=== PATIENT | female | born 1935 | race African-American/Black ===

== ENCOUNTER → 2016-10-31 | Outpatient (CLI) | payer MEDICARE | LOC: RAD 13:02 | PROVIDERS: ATTEND Internal Medicine | DX: R06.02 Shortness of breath (principal) | CPT/HCPCS: 78582; A9540; A9567; Q9969 ==

== ENCOUNTER 2016-11-05 14:19 | Observation (INO) | payer MEDICARE ==
--- NOTE | 2016-11-05 15:19 | ER Document Report ---
ED Medical Screen (RME) - General Chief Complaint: General Weakness Stated Complaint: DIFFICULTY BREATHING Mode of Arrival: Ambulatory Information source: Patient Notes: 81-year-old female presents to ED c/o persistent sob over the last several weeks. Reports "tightness" to epigastric area but denies chest pain. States was seen by pcp last week and had VQ scan on 10/31/16 which was negative for PE. I have greeted and performed a rapid initial assessment of this patient. A comprehensive ED assessment and evaluation of the patient, analysis of test results and completion of the medical decision making process will be conducted by additional ED providers. TRAVEL OUTSIDE OF THE [place] IN LAST 30 DAYS: No - Related Data Allergies/Adverse Reactions: Iodinated Contrast Media - Oral and Allergy (Intermediate, Verified 11/05/16 15: 16) Hives Penicillins Allergy (Verified 11/05/16 15:16) Past Medical History - Social History Frequency of alcohol use: None Drug Abuse: None Renal/ Medical History: Denies: Hx Peritoneal Dialysis Physical Exam - Vital signs Vitals: Temp Pulse BP Pulse Ox 98.3 F 87 182/63 H 99 11/05/16 15:10 11/05/16 15:10 11/05/16 15:10 11/05/16 15:10 - General General appearance: Appears well, Alert In distress: None - Respiratory Respiratory status: No respiratory distress Course - Vital Signs Vital signs: Temp Pulse Resp BP Pulse Ox 98.3 F 87 182/63 H 99 11/05/16 15:10 11/05/16 15:10 11/05/16 15:10 11/05/16 15:10
[2016-11-05 16:03] LABS: ABSOLUTE BASOPHILS # (AUTO) 0.2 10^3/uL (0.0-0.2); ABSOLUTE EOSINOPHILS # (AUTO) 0.6 10^3/uL (0.0-0.6); ABSOLUTE LYMPHOCYTES (AUTO) 3.2 10^3/uL (0.5-4.7); ABSOLUTE MONOCYTES (AUTO) 0.5 10^3/uL (0.1-1.4); EOSINOPHILS % (AUTO) 7.3 % (0-6); HEMATOCRIT 39.2 % (36.0-47.0); HEMOGLOBIN 12.9 g/dL (12.0-15.5); HGB HCT DIFFERENCE -0.5; LYMPHOCYTES % (AUTO) 37.9 % (13-45); MEAN CORPUSCULAR HEMOGLOBIN 29.1 pg (27.0-33.4); MEAN CORPUSCULAR HGB CONC 32.8 g/dL (32.0-36.0); MEAN CORPUSCULAR VOLUME 89 fl (80-97); MONOCYTES % (AUTO) 5.9 % (3-13); RED BLOOD COUNT 4.42 10^6/uL (3.72-5.28); SEGMENTED NEUTROPHILS % (AUTO) 46.9 % (42-78); WHITE BLOOD COUNT 8.5 10^3/uL (4.0-10.5)
[2016-11-05 16:20] LABS: ALANINE AMINOTRANSFERASE 20 U/L (9-52); ALBUMIN 4.4 g/dL (3.5-5.0); ALKALINE PHOSPHATASE 117 U/L (38-126); ANION GAP 13 (5-19); ASPARTATE AMINO TRANSFERASE 14 U/L (14-36); BILIRUBIN,TOTAL 0.5 mg/dL (0.2-1.3); BLOOD UREA NITROGEN 14 mg/dL (7-20); CALCIUM 10.2 mg/dL (8.4-10.2); CARBON DIOXIDE 25 mmol/L (22-30); CHLORIDE 103 mmol/L (98-107); CREATINE KINASE 36 U/L (30-135); CREATININE RESULT 0.83 mg/dL (0.52-1.25); GLUCOSE 110 mg/dL (75-110); POTASSIUM 4.5 mmol/L (3.6-5.0); SODIUM 140.8 mmol/L (137-145); TOTAL PROTEIN 7.3 g/dL (6.3-8.2)
[2016-11-05 16:28] LABS: CREATINE KINASE MB 0.37 ng/mL (<4.55)
[2016-11-05 16:32] LABS: TROPONIN I 0.014 ng/mL
[2016-11-05 17:45] LABS: AMORPHOUS SEDIMENT,URINE TRACE /HPF; APPEARANCE,URINE SLIGHTLY-CLOUDY; BILIRUBIN,URINE NEGATIVE (NEGATIVE); CALCIUM OXALATE CRYSTALS,URINE TOO NUMEROUS TO CNT /HPF; GLUCOSE, URINE NEGATIVE (NEGATIVE); KETONES,URINE NEGATIVE (NEGATIVE); LEUKOCYTE ESTERASE,URINE NEGATIVE (NEGATIVE); NITRITE,URINE NEGATIVE (NEGATIVE); PROTEIN,URINE NEGATIVE (NEGATIVE); UROBILINOGEN,URINE NEGATIVE mg/dL (<2.0)
[2016-11-05] MEDS ORDERED: CLONIDINE HCL 0.2 MG TABLET PO ONE (18:58)
--- NOTE | 2016-11-05 19:01 | ER Document Report ---
ED Respiratory Problem - General Chief Complaint: General Weakness Stated Complaint: DIFFICULTY BREATHING Time seen by provider: 18:59 Mode of Arrival: Ambulatory Information source: Patient TRAVEL OUTSIDE OF THE [place] IN LAST 30 DAYS: No - HPI Patient complains to provider of: Cough, Short of breath Onset: Other - One year but worsening over the past 2 days Duration: Worse/persistent Quality of pain: No pain Severity: Mild Short of Breath: Mild Chest pain/discomfort: Tightness Cough: Nonproductive Similar symptoms previously: Yes Recently seen / treated by doctor: Yes Notes: Patient is an 81-year-old female presenting to the emergency room complaining of shortness of breath that's been going on for the past year with waxing and waning symptoms, worsening over the past 2-3 days, states she is started out with cold like symptoms and wheezing, now she has a bulging sensation in her chest that causes difficulty breathing and choking sensation, she reports a dry cough, it wakes her up at night, states she gets night sweats often, and some ankle swelling throughout the day, has had a decreased appetite, feels generalized weakness and lightheadedness, patient has been seen at urgent care approximately one week ago, and then followed up with her primary care provider on Sunday, had a lung scan were performed recently which shows no abnormalities , she denies any chest pain, no fevers, no history of smoking or secondhand smoke exposure - Related Data Allergies/Adverse Reactions: Iodinated Contrast Media - Oral and Allergy (Intermediate, Verified 11/05/16 15: 16) Hives Penicillins Allergy (Verified 11/05/16 15:16) Past Medical History - General Information source: Patient - Social History Smoking Status: Never Smoker Frequency of alcohol use: None Drug Abuse: None Family History: Reviewed & Not Pertinent Patient has suicidal ideation: No Patient has homicidal ideation: No Renal/ Medical History: Denies: Hx Peritoneal Dialysis Review of Systems - Review of Systems Constitutional: Diaphoresis, Weakness EENT: No symptoms reported Cardiovascular: No symptoms reported Respiratory: See HPI Gastrointestinal: No symptoms reported Genitourinary: No symptoms reported Female Genitourinary: No symptoms reported Musculoskeletal: No symptoms reported Skin: No symptoms reported Hematologic/Lymphatic: No symptoms reported Neurological/Psychological: No symptoms reported -: Yes All other systems reviewed and negative Physical Exam - Vital signs Vitals: Temp Pulse BP Pulse Ox 98.3 F 87 182/63 H 99 11/05/16 15:10 11/05/16 15:10 11/05/16 15:10 11/05/16 15:10 Interpretation: Hypertensive - General General appearance: Appears well, Alert - HEENT Head: Normocephalic, Atraumatic Eyes: Normal Pupils: PERRL - Respiratory Respiratory status: No respiratory distress Chest status: Nontender Breath sounds: Normal Chest palpation: Normal - Cardiovascular Rhythm: Regular Heart sounds: Normal auscultation Murmur: No - Abdominal Inspection: Normal Distension: No distension Bowel sounds: Normal Tenderness: Nontender Organomegaly: No organomegaly - Back Back: Normal, Nontender - Extremities General upper extremity: Normal inspection, Nontender, Normal color, Normal ROM , Normal temperature General lower extremity: Normal inspection, Nontender, Normal color, Normal ROM , Normal temperature, Normal weight bearing. No: Brady's sign - Neurological Neuro grossly intact: Yes Cognition: Normal Orientation: AAOx4 [place] Coma Scale Eye Opening: Spontaneous [place] Coma Scale Verbal: Oriented [place] Coma Scale Motor: Obeys Commands [place] Coma Scale Total: 15 Speech: Normal Motor strength normal: LUE, RUE, LLE, RLE Sensory: Normal - Psychological Associated symptoms: Normal affect, Normal mood - Skin Skin Temperature: Warm Skin Moisture: Dry Skin Color: Normal Course - Re-evaluation Re-evalutation: 11/05/16 21:18 Patient resting comfortably, workup so far has been unremarkable, patient was discussed with the primary care provider would like to place patient in the hospital on observation status for further workup and evaluation, this plan was discussed with patient and daughter at bedside who are in agreement - Vital Signs Vital signs: Temp Pulse Resp BP Pulse Ox 98.3 F 87 12 183/72 H 100 11/05/16 15:10 11/05/16 15:10 11/05/16 19:03 11/05/16 19:03 11/05/16 19:03 - Laboratory Result Diagrams: 11/05/16 15:50 11/05/16 15:50 Laboratory results interpreted by me: 11/05/16 11/05/16 15:50 16:00 Eosinophils % 7.3 H Urine Ascorbic Acid 40 H - Diagnostic Test Radiology reviewed: Image reviewed, Reports reviewed - EKG Interpretation by Me EKG shows normal: Sinus rhythm Rate: Normal Rhythm: NSR - Transfer of Care Care transferred to following provider: Dr Luciano Discharge - Discharge Clinical Impression: Dyspnea on exertion Chest pain Qualifiers: Chest pain type: unspecified Qualified Code(s): R07.9 - Chest pain, unspecified Condition: Stable Disposition: ADMITTED OBSERVATION Admitting Provider: Vinod Unit Admitted: Telemetry Referrals: SAADIA LUCIANO MD [Primary Care Provider] - Follow up as needed
[2016-11-05 20:04] LABS: VENOUS BLOOD BASE EXCESS -0.8 mmol/L; VENOUS BLOOD HCO3 25.6 mmol/L (20-32); VENOUS BLOOD PCO2 48.9 mmHg (35-63); VENOUS BLOOD PH 7.34 (7.30-7.42)
--- NOTE | 2016-11-05 20:30 | EKG REPORT ---
SEVERITY:- ABNORMAL ECG - SINUS RHYTHM PROBABLE LVH WITH SECONDARY REPOL ABNRM : Confirmed by: Easton Schulz MD 05-Nov-2016 20:29:57
[2016-11-05 20:39] LABS: FREE T3 2.79 pg/mL (2.77-5.27)
[2016-11-05 20:52] LABS: THYROID STIMULATING HORMONE 2.49 uIU/mL (0.47-4.68)
[2016-11-06 04:57] LABS: ABSOLUTE EOSINOPHILS # (AUTO) 0.6 10^3/uL (0.0-0.6); ABSOLUTE LYMPHOCYTES (AUTO) 3.9 10^3/uL (0.5-4.7); ABSOLUTE MONOCYTES (AUTO) 0.5 10^3/uL (0.1-1.4); ABSOLUTE NEUT (AUTO) 2.9 10^3/uL (1.7-8.2); BASOPHILS % (AUTO) 0.5 % (0-2); EOSINOPHILS % (AUTO) 7.1 % (0-6); HEMATOCRIT 34.9 % (36.0-47.0); HEMOGLOBIN 11.1 g/dL (12.0-15.5); HGB HCT DIFFERENCE -1.6; LYMPHOCYTES % (AUTO) 48.9 % (13-45); MEAN CORPUSCULAR HEMOGLOBIN 28.5 pg (27.0-33.4); MEAN CORPUSCULAR HGB CONC 31.9 g/dL (32.0-36.0); MEAN CORPUSCULAR VOLUME 90 fl (80-97); MONOCYTES % (AUTO) 6.7 % (3-13); RED CELL DISTRIBUTION WIDTH 14.1 % (11.5-14.0); SEGMENTED NEUTROPHILS % (AUTO) 36.8 % (42-78)
[2016-11-06] MEDS: ENALAPRILAT DIHYDRATE INJ/PF 2.5 MG/2 ML SDV IV SCH ×4 (05:42→22:50)
[2016-11-06] MEDS: ENOXAPARIN SODIUM INJ 40 MG/0.4 ML DISP.SYRIN SUBCUT SCH (08:57)
[2016-11-06] MEDS ORDERED: ASPIRIN 81 MG TABLET, ENT COATED PO SCH (14:00)
[2016-11-06] MEDS ORDERED: (PENDING PHARMACY ID) (Cholecalciferol (Vitamin D3) [Vitamin D3] 1,000 UNIT) PO SCH (14:00)
[2016-11-06] MEDS ORDERED: VITAMIN E 100 UNIT PO SCH (14:00)
[2016-11-06 15:20] LABS: CREATINE KINASE MB 0.23 ng/mL (<4.55); TROPONIN I 0.013 ng/mL
[2016-11-06] MEDS ORDERED: CHOLECALCIFEROL (D3) 1,000 UNIT TABLET PO ONE (15:30)
[2016-11-06] MEDS ORDERED: LEVOTHYROXINE SODIUM 0.088 MG TABLET PO ONE (16:00)
[2016-11-06] MEDS ORDERED: ASPIRIN 81 MG TABLET, ENT COATED PO ONE (16:00)
[2016-11-06] MEDS ORDERED: AMLODIPINE BESYLATE 5 MG TABLET PO ONE (16:00)
[2016-11-06] MEDS ORDERED: LANSOPRAZOLE 30 MG TAB.RAP.DR PO ONE (16:00)
[2016-11-06] MEDS ORDERED: (PENDING PHARMACY ID) (Metformin Hcl [Metformin Hcl Er] 500 MG) PO SCH (16:00)
[2016-11-06] MEDS: LANSOPRAZOLE 30 MG TAB.RAP.DR PO SCH (16:40)
[2016-11-06] MEDS: METFORMIN HCL 500 MG TABLET PO SCH (16:40)
[2016-11-06] MEDS: LEVOTHYROXINE SODIUM 0.088 MG TABLET PO SCH (16:40)
[2016-11-06] MEDS: METOPROLOL TARTRATE 50 MG TABLET PO SCH (18:21)
[2016-11-06] MEDS: HUM INSULIN NPH/REG INSULIN HM 100 UNIT/1 ML 3 ML SUBCUT SCH (18:21)
--- NOTE | 2016-11-06 18:30 | PDOC H&P ---
History of Present Illness Admission Date/PCP: 11/05/16 23:00 SAADIA LUCIANO, History of Present Illness: ADDISON DICKEY is a 81 year old female, she came to the emergency room because of progressive shortness of breath. She recently came to establish with our practice as a new patient last week and at the time she was on antibiotic that was prescribed for her when she presented to the emergency room with respiratory symptoms. She was at the time diagnosed with pneumonia, when I saw her in the office, she has shortness of breath. I requested for a stat VQ scan because she could not get a CTA because of the allergy to dye, the VQ scan was negative for pulmonary embolus. She came to emergency room again with complained of shortness of breath. The shortness of breath is chronic in the last year, but she said it has been worse in the last 2 days. In the emergency room she was evaluated. Chest x-ray was done that showed peribronchial coughing and interstitial changes, she does not smoke cigarettes or no history of secondhand smoke. She has risk factors for coronary artery disease including type II diabetes mellitus, hypertension, it is probably reasonable to admit her for observation and eliminates or confirm ischemic heart disease Past Medical History Cardiac Medical History: Reports: Hypertension Endocrine Medical History: Reports: Diabetes Mellitus Type 2, Hypothyroidism Past Surgical History Past Surgical History: Reports: Cholecystectomy, Hysterectomy Social History Smoking Status: Never Smoker - Advance Directive Resuscitation Status: Full Code Family History Family History: Reviewed & Not Pertinent Parental Family History Reviewed: Yes Children Family History Reviewed: Yes Sibling(s) Family History Reviewed.: Yes Medication/Allergy Home Medications: Amlodipine Besylate [Norvasc 5 mg Tablet] 5 mg PO DAILY 11/06/16 Aspirin [Aspirin EC] 81 mg PO DAILY 11/06/16 Cholecalciferol (Vitamin D3) [Vitamin D3] 1,000 unit PO DAILY 11/06/16 Insulin NPH Hum/Reg Insulin Hm [Novolin 70-30 100 Unit/ml Vial] 12 unit SQ QPM 11/06/16 Insulin NPH Hum/Reg Insulin Hm [Novolin 70-30 100 Unit/ml Vial] 15 unit SQ QAM 11/06/16 Levothyroxine Sodium [Synthroid 0.088 mg Tablet] 88 mcg PO DAILY 11/06/16 Metformin HCl [Metformin HCl ER] 500 mg PO BIDACBS 11/06/16 Metoprolol Tartrate [Lopressor 50 mg Tablet] 50 mg PO Q12 11/06/16 Omeprazole 40 mg PO DAILY 11/06/16 Vitamin E 100 unit PO DAILY 11/06/16 Albuterol Sulfate [Proair HFA] 1 - 2 puff IH Q4 PRN #1 inhaler 11/07/16 Allergies/Adverse Reactions: Iodinated Contrast Media - Oral and Allergy (Intermediate, Verified 11/05/16 15: 16) Hives Penicillins Allergy (Verified 11/05/16 15:16) Review of Systems Constitutional: ABSENT: chills, fever(s), headache(s), weight gain, weight loss Eyes: ABSENT: visual disturbances Ears: ABSENT: hearing changes Cardiovascular: PRESENT: dyspnea on exertion Respiratory: ABSENT: cough, hemoptysis Gastrointestinal: ABSENT: abdominal pain, constipation, diarrhea, hematemesis, hematochezia, nausea, vomiting Genitourinary: ABSENT: dysuria, hematuria Musculoskeletal: ABSENT: joint swelling Integumentary: ABSENT: rash, wounds Neurological: ABSENT: abnormal gait, abnormal speech, confusion, dizziness, focal weakness, syncope Psychiatric: ABSENT: anxiety, depression, homidical ideation, suicidal ideation Endocrine: ABSENT: cold intolerance, heat intolerance, menstrual abnormalities, polydipsia, polyuria Hematologic/Lymphatic: ABSENT: easy bleeding, easy bruising, lymphadenopathy Physical Exam Vital Signs: Temp Pulse Resp BP Pulse Ox 98.3 F 87 20 141/60 H 100 11/05/16 15:10 11/05/16 15:10 11/06/16 18:03 11/06/16 17:31 11/06/16 18:03 Intake & Output 11/05/16 11/06/16 11/07/16 06:59 06:59 06:59 Intake Total 240 Balance 240 General appearance: PRESENT: no acute distress, well-developed, well-nourished Head exam: PRESENT: atraumatic, normocephalic Eye exam: PRESENT: conjunctiva pink, EOMI, PERRLA Ear exam: PRESENT: normal external ear exam Mouth exam: PRESENT: moist, tongue midline Neck exam: PRESENT: full ROM Respiratory exam: PRESENT: clear to auscultation kyle Cardiovascular exam: PRESENT: RRR, +S1, +S2 Pulses: PRESENT: normal dorsalis pedis pul, +2 pedal pulses bilateral Vascular exam: PRESENT: normal capillary refill GI/Abdominal exam: PRESENT: normal bowel sounds, soft Rectal exam: PRESENT: deferred Neurological exam: PRESENT: alert, awake, oriented to person, oriented to place , oriented to time, oriented to situation, CN II-XII grossly intact Psychiatric exam: PRESENT: appropriate affect, normal mood Skin exam: PRESENT: dry, intact, warm Results Laboratory Results: 11/06/16 04:31 11/06/16 04:31 WBC 8.0 RBC 3.90 Hgb 11.1 L Hct 34.9 L MCV 90 MCH 28.5 MCHC 31.9 L RDW 14.1 H Plt Count 289 Seg Neutrophils % 36.8 L Lymphocytes % 48.9 H Monocytes % 6.7 Eosinophils % 7.1 H Basophils % 0.5 Absolute Neutrophils 2.9 Absolute Lymphocytes 3.9 Absolute Monocytes 0.5 Absolute Eosinophils 0.6 Absolute Basophils 0.0 11/06/16 11/06/16 14:37 14:37 Creatine Kinase 29 L CK-MB (CK-2) 0.23 Troponin I 0.013 Impressions: Chest X-Ray 11/05/16 15:16 IMPRESSION: REACTIVE AIRWAY DISEASE VERSUS VIRAL SYNDROME. NO CONSOLIDATION. Assessment & Plan - Diagnosis (1) Bronchospastic airway disease Is this a current diagnosis for this admission?: Yes (2) Acute bronchitis with bronchospasm Is this a current diagnosis for this admission?: Yes (3) Type 2 diabetes mellitus Qualifiers: Diabetes mellitus complication status: without complication Diabetes mellitus shelter insulin use: without shelter use Qualified Code(s): E11.9 - Type 2 diabetes mellitus without complications Is this a current diagnosis for this admission?: Yes
--- NOTE | 2016-11-06 19:15 | XCELERA REPORT ---
[address] [address] Transthoracic Echocardiogram Report Name: ADDISON DICKEY Age: 81 yrs Gender: Female : 1935 Patient Status: Inpatient Patient Location: \S\[facility]\S\A Study Date: 11/06/2016 02:53 PM Height: 66 in Weight: 160 lb BSA: 1.8 m2 Procedure: A complete two-dimensional transthoracic echocardiogram was performed (2D, M-mode, spectral and color flow Doppler). The study was technically difficult with many images being suboptimal in quality. Reason For Study: shortness of breath Ordering Physician: SAADIA LUCIANO Performed By: Sydni Ramon Interpretation Summary The left ventricular ejection fraction is within normal limits. There is borderline concentric left ventricular hypertrophy. The left ventricle is grossly normal size. Doppler measurements suggest impaired left ventricular relaxation, which is associated with grade I/IV or mild diastolic dysfunction The right ventricular systolic function is normal. The left atrial size is normal. The right atrium is normal in size There is a mild amount of mitral regurgitation There is no mitral valve stenosis. There is no aortic valve stenosis There is a trace amount of aortic regurgitation There is no tricuspid stenosis. Tricuspid regurgitation jet envelope not well defined to measure RV systolic pressure accurately. The aortic root is not well visualized but is probably normal size. The inferior vena cava appeared normal and decreased > 50% with respiration (RAP 5-10 mmHg) Minimal pericardial effusion. MMode/2D Measurements \T\ Calculations RVDd: 2.8 cm LVIDd: 4.3 cm FS: 37.0 % Ao root diam: 3.2 cm IVSd: 0.98 cm LVIDs: 2.7 cm EDV(Teich): 82.6 ml LVPWd: 1.1 cm ESV(Teich): 27.1 ml Ao root area: 7.9 cm2 EF(Teich): 67.2 % LA dimension: 3.5 cm LVOT diam: 2.2 cm LVOT area: 3.8 cm2 Doppler Measurements \T\ Calculations MV E max riley: MV P1/2t max riley: Ao V2 max: LV V1 max P.8 cm/sec 53.8 cm/sec 108.0 cm/sec 3.7 mmHg MV A max riley: MV P1/2t: 54.0 msec Ao max PG: LV V1 max: 68.2 cm/sec MVA(P1/2t): 4.1 cm2 4.7 mmHg 95.9 cm/sec MV E/A: 0.77 MV dec slope: SISI(V,D): 3.4 cm2 292.1 cm/sec2 MV dec time: 0.19 sec PA V2 max: TR max riley: 81.9 cm/sec 208.5 cm/sec PA max PG: TR max P.4 mmHg 2.7 mmHg Left Ventricle The left ventricle is grossly normal size. There is borderline concentric left ventricular hypertrophy. The left ventricular ejection fraction is within normal limits. Doppler measurements suggest impaired left ventricular relaxation, which is associated with grade I/IV or mild diastolic dysfunction. Wall motion cannot be accurately commented on, but no definite regional wall motion abnormalities noted. Right Ventricle The right ventricle is normal size. There is normal right ventricular wall thickness. The right ventricular systolic function is normal. Atria The right atrium is normal in size. The left atrial size is normal. Interarterial septum not well visualized and not well dopplered. Cannot comment on ASD/PFO presence. Mitral Valve The mitral valve is grossly normal. There is no mitral valve stenosis. There is a mild amount of mitral regurgitation. Aortic Valve The aortic valve is grossly normal. There is no aortic valve stenosis. There is a trace amount of aortic regurgitation. Tricuspid Valve The tricuspid valve is not well visualized, but is grossly normal. There is no tricuspid stenosis. There is a trace or physiologic amount of tricuspid regurgitation. Tricuspid regurgitation jet envelope not well defined to measure RV systolic pressure accurately. Pulmonic Valve The pulmonic valve is not well visualized. Great Vessels The aortic root is not well visualized but is probably normal size. The inferior vena cava appeared normal and decreased > 50% with respiration (RAP 5-10 mmHg). Effusions Minimal pericardial effusion. : SAADIA LUCIANO > Kenny Ellis
[2016-11-06 22:46] LABS: CREATINE KINASE MB 0.46 ng/mL (<4.55); TROPONIN I 0.012 ng/mL
[2016-11-07] MEDS: ENALAPRILAT DIHYDRATE INJ/PF 2.5 MG/2 ML SDV IV SCH ×4 (00:38→17:30)
[2016-11-07 04:44] LABS: ABSOLUTE BASOPHILS # (AUTO) 0.1 10^3/uL (0.0-0.2); ABSOLUTE EOSINOPHILS # (AUTO) 0.7 10^3/uL (0.0-0.6); ABSOLUTE LYMPHOCYTES (AUTO) 3.9 10^3/uL (0.5-4.7); ABSOLUTE MONOCYTES (AUTO) 0.5 10^3/uL (0.1-1.4); ABSOLUTE NEUT (AUTO) 2.9 10^3/uL (1.7-8.2); BASOPHILS % (AUTO) 1.1 % (0-2); EOSINOPHILS % (AUTO) 8.7 % (0-6); HEMATOCRIT 36.7 % (36.0-47.0); HEMOGLOBIN 11.9 g/dL (12.0-15.5); LYMPHOCYTES % (AUTO) 47.8 % (13-45); MEAN CORPUSCULAR HEMOGLOBIN 28.7 pg (27.0-33.4); MEAN CORPUSCULAR HGB CONC 32.3 g/dL (32.0-36.0); MEAN CORPUSCULAR VOLUME 89 fl (80-97); MONOCYTES % (AUTO) 6.6 % (3-13); RED BLOOD COUNT 4.14 10^6/uL (3.72-5.28); RED CELL DISTRIBUTION WIDTH 14.1 % (11.5-14.0); SEGMENTED NEUTROPHILS % (AUTO) 35.8 % (42-78); WHITE BLOOD COUNT 8.1 10^3/uL (4.0-10.5)
[2016-11-07 05:10] LABS: CREATINE KINASE MB 0.45 ng/mL (<4.55)
[2016-11-07 05:13] LABS: TROPONIN I 0.012 ng/mL
[2016-11-07] MEDS: METOPROLOL TARTRATE 50 MG TABLET PO SCH ×2 (07:37→17:30)
[2016-11-07] MEDS ORDERED: HUM INSULIN NPH/REG INSULIN HM 100 UNIT/1 ML 3 ML SUBCUT SCH (08:00)
[2016-11-07] MEDS: METFORMIN HCL 500 MG TABLET PO SCH ×2 (08:11→16:19)
[2016-11-07] MEDS: ENOXAPARIN SODIUM INJ 40 MG/0.4 ML DISP.SYRIN SUBCUT SCH (08:11)
[2016-11-07] MEDS ORDERED: ASPIRIN 81 MG TABLET, ENT COATED PO SCH (10:00)
[2016-11-07] MEDS ORDERED: AMLODIPINE BESYLATE 5 MG TABLET PO SCH (10:00)
[2016-11-07] MEDS ORDERED: CHOLECALCIFEROL (D3) 1,000 UNIT TABLET PO SCH (10:00)
[2016-11-07] MEDS: LANSOPRAZOLE 30 MG TAB.RAP.DR PO SCH (10:26)
[2016-11-07] MEDS: LEVOTHYROXINE SODIUM 0.088 MG TABLET PO SCH (10:26)
[2016-11-07] MEDS ORDERED: REGADENOSON INJ 0.4 MG/5 ML DISP.SYRIN IV ONE (10:53)
--- NOTE | 2016-11-07 12:37 | DRAGON STRESS TEST REPORT ---
INTRAVENOUS LEXISCAN CARDIOLITE STRESS TEST USING SINGLE PHOTON EMMISION COMPUTERIZED TOMOGRAPHIC. DATE OF PROCEDURE: 11/07/2016 INDICATION : Chest pain, shortness of breath RESTING EKG: Sinus rhythm, LVH with secondary ST-T wave changes STRESS EKG: No significant changes noted with LexiScan bolus REASON FOR TERMINATION: Protocol. PROCEDURE REPORT: Baseline heart rate 78 beats per minute with blood pressure of 154/69. Patient had no significant complaints. Heart rate at 2 minutes post bolus 78 with a blood pressure of on 187/74. 3 minutes post bolus heart rate 79 with blood pressure of 185/73. No significant EKG changes were noted. Patient had no significant complaints during the procedure or postprocedure. CONCLUSIONS: Normal EKG and hemodynamic response to IV LexiScan. NUCLEAR DATA: At rest the patient was given 11.4 millicuries of technetium 99 sestamibi injected intravenously. As per protocol rest gated SPECT images were obtained. Subsequently the patient was given intravenous LexiScan at a dose of 0.4 mg in 5 mL intravenously, followed by flush with normal saline. Subsequently the stress dose of 35.2 millicuries of technetium 99 sestamibi was injected intravenously. As per protocol stress gated images were obtained. NUCLEAR INTERPRETATION: Both raw and processed data were used for interpretation. Visual, qualitative, computer-generated quantitative data was used. There was good myocardial uptake of technetium compound. Motion artifact and soft tissue attenuations were noted. Increased visceral uptake was noted. No definitive areas of transient perfusion defect noted. No definitive areas of fixed perfusion defect or scars noted. EKG gated imaging showed LV EF at 63 %, rest and stress gated EF similar visually. T. I D. ratio was 1.03. Lung heart ratio noted to be within normal limits 0.32. No significant extracardiac and abnormal radiotracer activities were noted. RV free wall uptake was noted to be normal. IMPRESSION: Also refer to comments under nuclear interpretation. Also test results needs to be interpreted in the context of pretest probability. 1. There is no definitive scintigraphic evidence of LexiScan induced myocardial ischemia. 2. There is no definitive scintigraphic evidence of myocardial infarction/scar. 3. EKG gated imaging shows left ejection fraction of approximately 63 %. 4. Clinical correlation requested as occasionally single vessel disease or balanced ischemia could be missed. In approximately 10% of the cases Lexiscan may not cause adequate vasodilatory stress. RECOMMENDATIONS: Aggressive risk factor modification, medical therapy. Clinical correlation with echocardiogram derived ejection fraction. Inability to exercise by itself can lead to increased cardiovascular event risks. Consider cardiology consultation if clinically indicated. I AM AVAILABLE FOR CARDIOLOGY CONSULTATION AND FOLLOWUP IF REQUESTED BY PMD Kenny Ellis M.D., MRCP Surveillance Dual Rate Officer mine geologist, Board certified in cardiovascular diseases, Nuclear cardiology, Echocardiography Cardiac CT and cardiac MRI Ph. [phone] [facility]
[2016-11-07 16:13] VITALS: BP 147/58
[2016-11-07] MEDS: HUM INSULIN NPH/REG INSULIN HM 100 UNIT/1 ML 3 ML SUBCUT SCH (17:29)
--- NOTE | 2016-11-07 18:28 | PDOC DISCHARGE SUMMARY ---
General - Admit/Disc Date/PCP Admission Date/Primary Care Provider: 11/05/16 23:00 SAADIA LUCIANO, Discharge Date: 11/07/16 - Discharge Diagnosis (1) Bronchospastic airway disease Is this a current diagnosis for this admission?: Yes (2) Acute bronchitis with bronchospasm Is this a current diagnosis for this admission?: Yes (3) Type 2 diabetes mellitus Is this a current diagnosis for this admission?: Yes - Additional Information Resuscitation Status: Full Code Home Medications: RX: Amlodipine Besylate [Norvasc 5 mg Tablet] 5 mg PO DAILY 11/06/16 RX: Aspirin [Aspirin EC] 81 mg PO DAILY 11/06/16 RX: Cholecalciferol (Vitamin D3) [Vitamin D3] 1,000 unit PO DAILY 11/06/16 RX: Insulin NPH Hum/Reg Insulin Hm [Novolin 70-30 100 Unit/ml Vial] 12 unit SQ QPM 11/06/16 RX: Insulin NPH Hum/Reg Insulin Hm [Novolin 70-30 100 Unit/ml Vial] 15 unit SQ QAM 11/06/16 RX: Levothyroxine Sodium [Synthroid 0.088 mg Tablet] 88 mcg PO DAILY 11/06/16 RX: Metformin HCl [Metformin HCl ER] 500 mg PO BIDACBS 11/06/16 RX: Metoprolol Tartrate [Lopressor 50 mg Tablet] 50 mg PO Q12 11/06/16 RX: Omeprazole 40 mg PO DAILY 11/06/16 RX: Vitamin E 100 unit PO DAILY 11/06/16 Albuterol Sulfate [Proair HFA] 1 - 2 puff IH Q4 PRN #1 inhaler 11/07/16 History of Present Illness History of Present Illness: ADDISON DICKEY is a 81 year old female, she came to the emergency room because of progressive shortness of breath. She recently came to establish with our practice as a new patient last week and at the time she was on antibiotic that was prescribed for her when she presented to the emergency room with respiratory symptoms. She was at the time diagnosed with pneumonia, when I saw her in the office, she has shortness of breath. I requested for a stat VQ scan because she could not get a CTA because of the allergy to dye, the VQ scan was negative for pulmonary embolus. She came to emergency room again with complained of shortness of breath. The shortness of breath is chronic in the last year, but she said it has been worse in the last 2 days. In the emergency room she was evaluated. Chest x-ray was done that showed peribronchial coughing and interstitial changes, she does not smoke cigarettes or no history of secondhand smoke. She has risk factors for coronary artery disease including type II diabetes mellitus, hypertension, it is probably reasonable to admit her for observation and eliminates or confirm ischemic heart disease Hospital Course Hospital Course: Patient was admitted because of shortness of breath, because she has risk factors for ischemic heart disease. She was admitted for evaluation and observation, she underwent lexiscan Cardiolite stress test and it showed no scintigraphic evidence of lexiscan induced myocardial ischemia, there is no scintigraphic evidence of myocardial infarction/scar the ejection fraction of the left ventricle was 635. She also had a 2-D echo done it was essentially normal echo. CT chest without contrast was done and it was negative, she had a VQ scan done last week that was negative for pulmonary embolus. She probably have bronchospastic disease because she had episode of wheezing with shortness of breath Physical Exam Vital Signs: Temp Pulse Resp BP Pulse Ox 97.7 F 75 18 147/58 H 100 11/07/16 15:42 11/07/16 15:42 11/07/16 15:42 11/07/16 15:42 11/07/16 15:42 Intake & Output 11/06/16 11/07/16 11/08/16 06:59 06:59 06:59 Intake Total 460 1761 Balance 460 1761 Weight 73.3 kg General appearance: PRESENT: no acute distress, well-developed, well-nourished Head exam: PRESENT: atraumatic, normocephalic Eye exam: PRESENT: conjunctiva pink, EOMI, PERRLA Ear exam: PRESENT: normal external ear exam Mouth exam: PRESENT: moist, tongue midline Neck exam: PRESENT: full ROM Respiratory exam: PRESENT: clear to auscultation kyle Cardiovascular exam: PRESENT: RRR, +S1, +S2 Vascular exam: PRESENT: normal capillary refill GI/Abdominal exam: PRESENT: normal bowel sounds, soft Rectal exam: PRESENT: deferred Neurological exam: PRESENT: alert, awake, oriented to person, oriented to place , oriented to time, oriented to situation, CN II-XII grossly intact Psychiatric exam: PRESENT: appropriate affect, normal mood Skin exam: PRESENT: dry, intact, warm Results Laboratory Results: 11/07/16 04:03 11/07/16 04:03 WBC 8.1 RBC 4.14 Hgb 11.9 L Hct 36.7 MCV 89 MCH 28.7 MCHC 32.3 RDW 14.1 H Plt Count 259 Seg Neutrophils % 35.8 L Lymphocytes % 47.8 H Monocytes % 6.6 Eosinophils % 8.7 H Basophils % 1.1 Absolute Neutrophils 2.9 Absolute Lymphocytes 3.9 Absolute Monocytes 0.5 Absolute Eosinophils 0.7 H Absolute Basophils 0.1 11/06/16 11/06/16 11/06/16 14:37 14:37 22:08 Creatine Kinase 29 L 45 CK-MB (CK-2) 0.23 Troponin I 0.013 11/06/16 11/07/16 11/07/16 22:08 04:03 04:03 Creatine Kinase 38 CK-MB (CK-2) 0.46 0.45 Troponin I 0.012 0.012 Impressions: Chest X-Ray 11/05/16 15:16 IMPRESSION: REACTIVE AIRWAY DISEASE VERSUS VIRAL SYNDROME. NO CONSOLIDATION. Chest CT 11/06/16 00:00 IMPRESSION: NO SIGNIFICANT FINDING ON NON-CONTRASTED CHEST CT.
== END 2016-11-07 18:39 | disposition home or self-care (01) ==
LOC: ER 14:19 → UNDOADMOB 21:33 → EH 21:33 → 3N 11-06 20:00
PROVIDERS: ADMIT Internal Medicine; ATTEND Internal Medicine
DX: J20.9 Acute bronchitis, unspecified (principal); E11.9 Type 2 diabetes mellitus without complications; I10 Essential (primary) hypertension; E03.9 Hypothyroidism, unspecified; Z79.4 Long term (current) use of insulin; Z79.84 Long term (current) use of oral hypoglycemic drugs
CPT/HCPCS: 93005; 99285; 36415 ×3; 84439; 82553 ×3; 82962 ×3; 82550 ×3; 84443; 85025 ×3; 80053; 81001; 84484 ×3; 84481; 82803; 83880; 93306; 93017; 71020; 78452; 71250; 93010; G0378 ×3; A9500; J2785; J3490; A9270 ×17; J1650 ×2; Q9969; J1815

== ENCOUNTER 2017-03-13 14:50 | Day surgery (SDC) | payer MEDICARE ==
[2017-03-13] MEDS ORDERED: NALOXONE HCL INJ/PF 0.4 MG/1 ML SDV ONE (16:15)
[2017-03-13] MEDS ORDERED: FENTANYL CITRATE INJ/PF 100 MCG/2 ML AMPUL ONE (16:16)
[2017-03-13] MEDS ORDERED: FLUMAZENIL INJ 0.5 MG/5 ML VIAL IV ONE (16:16)
[2017-03-13] MEDS ORDERED: EPINEPHRINE INJ 1 MG/10 ML DISP.SYRIN ONE (16:16)
[2017-03-13] MEDS ORDERED: MIDAZOLAM 2 MG/2 ML INJ ONE (16:16)
[2017-03-13] MEDS ORDERED: GLUCAGON,HUMAN RECOMB 1 MG INJ ONE (16:17)
[2017-03-13] MEDS ORDERED: ONABOTULINUMTOXINA INJ/PF 100 UNIT SDV IM PRN (16:57)
--- NOTE | 2017-03-13 17:28 | Operative Report ---
Operative Report DATE OF SURGERY: 03/13/17 Operative Report: Pre-op diagnosis: History of symptomatic pyloric stenosis Post-op diagnosis: Pyloric stenosis Surgery: Esophagogastroduodenoscopy with Botox injection Medications: Versed 1mg Fentanyl 50mcg IV push Tissue removed: None Procedure: After informed consent obtained from patient, the throat was sprayed with Hurricane and conscious sedation was achieved. The upper endoscope was inserted into the esophagus under direct vision and advanced into the stomach. The duodenum was entered and examined to the second part. Endoscope was then slowly pulled out of the patient as the mucosa was examined into details. Patient tolerated procedure well. Findings Esophagus: Normal Z-line at: 40 cm Antrum: The pyloric channel was muscular and did not take. I was able to get the 8.8 mm endoscope through without any difficulty. Four-quadrant immediately around the pyloric channel was then injected with Botox Body: Normal Fundus: Normal Duodenum first part: Normal Duodenum second part: Normal Plan: Continue omeprazole OPERATION: .
--- NOTE | 2017-03-13 17:29 | PDOC DISCHARGE SUMMARY ---
Discharge Summary (SDC) - Discharge Final Diagnosis: Pyloric stenosis Date of Surgery: 03/13/17 Discharge Date: 03/13/17 Condition: Stable Treatment or Instructions: None Discharge Diet: As Tolerated Discharge Activity: Activity As Tolerated Home Care Assistance: None Needed Report the Following to Your Physician Immediately: Swelling, Warmth, Increased Soreness
[2017-03-13 18:08] VITALS: BP 158/64
== END 2017-03-13 18:10 | disposition home or self-care (01) ==
LOC: END 14:50
PROVIDERS: ATTEND Internal Medicine Gastroenterology
PROC: 3E0G8GC Introduction of Other Therapeutic Substance into Upper GI, Via Natural or Artificial Opening Endoscopic (ICD-10-PCS; principal; 2017-03-13 15:30)
DX: K31.1 Adult hypertrophic pyloric stenosis (principal); K21.9 Gastro-esophageal reflux disease without esophagitis; K44.9 Diaphragmatic hernia without obstruction or gangrene; E11.9 Type 2 diabetes mellitus without complications; E03.9 Hypothyroidism, unspecified; I10 Essential (primary) hypertension; E66.3 Overweight; R06.02 Shortness of breath; Z79.899 Other long term (current) drug therapy; Z79.4 Long term (current) use of insulin; Z79.84 Long term (current) use of oral hypoglycemic drugs; Z88.0 Allergy status to penicillin; Z68.26 Body mass index [BMI] 26.0-26.9, adult
CPT/HCPCS: 43236; 82962; J2250; J3010; J0585; J0171; J1610; J2310; J3490

== ENCOUNTER → 2017-06-29 | Outpatient (CLI) | payer MEDICARE ==
--- NOTE | 2017-06-29 17:52 | RADIOLOGY REPORT (SQ) ---
EXAM DESCRIPTION: MRI HEAD WITHOUT COMPLETED DATE/TIME: 06/29/2017 5:12 pm REASON FOR STUDY: AMNESIA R41.1 ANTEROGRADE AMNESIA COMPARISON: None. TECHNIQUE: Multiplanar imaging includes non-contrasted T1, T2, FLAIR, and diffusion with ADC map seq uences. Images stored on PACS. LIMITATIONS: None. FINDINGS: ANATOMY: No anomalies. Normal vascular flow voids. Pituitary fossa normal. CSF SPACES: Normal in size and contour. No hemorrhage. CEREBRUM: Sulci and gyri normal in size and contour. Normal white matter signal on FLAIR imaging. No evidence of hemorrhage, mass, or extraaxial fluid collection. POSTERIOR FOSSA: No signal alteration. No hemorrhage. No edema, masses or mass effect. Internal lin tory canals, cerebello-pontine angles, mastoids normal. DIFFUSION IMAGING: Negative for acute or sub-acute infarction. ORBITS: No masses. Globes normal. PARANASAL SINUSES: No fluid levels. Mucosa normal. OTHER: No other significant finding. IMPRESSION: NORMAL MRI OF THE BRAIN WITHOUT INTRAVENOUS GADOLINIUM CONTRAST. EVIDENCE OF ACUTE STROKE: NO. TECHNICAL DOCUMENTATION: JOB ID: [id number] [employer]- All Rights Reserved
== END ==
LOC: RAD 16:03
PROVIDERS: ATTEND Internal Medicine
DX: R41.1 Anterograde amnesia (principal)
CPT/HCPCS: 70551

== ENCOUNTER → 2018-07-08 | Outpatient (CLI) | payer MEDICARE ==
--- NOTE | 2018-07-08 09:49 | RADIOLOGY REPORT (SQ) ---
EXAM DESCRIPTION: CT CHEST WITHOUT COMPLETED DATE/TIME: 07/08/2018 9:35 am REASON FOR STUDY: COUGH R05 COUGH COMPARISON: 2015. TECHNIQUE: CT scan performed of the chest without intravenous contrast. Images reviewed with lung, soft tissue and bone windows. Reconstructed coronal and sagittal MPR images reviewed. All images st ored on PACS. All CT scanners at this facility use dose modulation, iterative reconstruction, and/or weight based d osing when appropriate to reduce radiation dose to as low as reasonably achievable (ALARA). [facility]: Dose Right [facility]: CareDose [facility]: Dose Right [facility]: Teradose 4D [facility]: [employer] RADIATION DOSE: CT Rad equipment meets quality standard of care and radiation dose reduction techniq ues were employed. CTDIvol: 3.7 mGy. DLP: 128 mGy-cm. mGy. LIMITATIONS: No technical limitations. FINDINGS: LUNGS AND PLEURA: No masses, infiltrates, or pneumothorax. No pleural effusions or pleura l calcifications. HILAR AND MEDIASTINAL STRUCTURES: No identified masses or abnormal nodes. No obvious aneurysm. HEART AND VASCULAR STRUCTURES: No aneurysm. No pericardial effusion. UPPER ABDOMEN: Surgical clips with associated streak artifact close to the gastroesophageal junction. THYROID AND OTHER SOFT TISSUES: No masses. No adenopathy. BONES: No significant finding. HARDWARE: None in the chest. OTHER: No other significant findings. IMPRESSION: NO SIGNIFICANT FINDING ON NON-CONTRASTED CHEST CT. TECHNICAL DOCUMENTATION: JOB ID: [id number] Quality ID # [id number]: Final reports with documentation of one or more dose reduction techniques (e.g., Au tomated exposure control, adjustment of the mA and/or kV according to patient size, use of iterative reconstruction technique) 2010 [employer]- All Rights Reserved Reading location - IP/workstation name: [email or web address]
== END ==
LOC: RAD 09:03
PROVIDERS: ATTEND Internal Medicine
DX: R05 Cough (principal)
CPT/HCPCS: 71250

== ENCOUNTER → 2018-12-20 | Outpatient (CLI) | payer MEDICARE, OTHER ==
--- NOTE | 2018-12-20 11:45 | RADIOLOGY REPORT (SQ) ---
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 Fluoroscopic spot images and routine radiographic images acquired and stored on PACS. 12 MM BARIUM TABLET GIVEN: Yes 12 mm barium tablet stuck at the GE junction throughout study. This reproduced the patient's symptom s LIMITATIONS: None. FLUOROSCOPY TIME: FLUORO TIME: 2.3 minutes 14 series of digital radiographic images saved to PACS. FINDINGS: NEUROMUSCULAR COORDINATION OF SWALLOW: Normal. No aspiration. ESOPHAGEAL MOTILITY: Normal peristalsis. No esophageal spasm. ESOPHAGEAL MUCOSA: Normal mucosa without masses or ulceration. GASTRO-ESOPHAGEAL JUNCTION: Gastroesophageal junction is abnormal. There is a pocket of stomach fund us protruding up through the diaphragmatic hiatus around the GE junction likely residua from a failed Sarbjit fundoplication. Surgical clips at the GE junction are also present, question prior vagotomy. There is a stricture at the GE junction which impedes passage of the 12 mm barium tablet. The lesli um tablet sat at the GE junction throughout the study for least 30 minutes before dissolving. Mary jesus was able to swallow barium around the tablet without difficulty. There was gastroesophageal reflux around the tablet as well. STOMACH: Normal without masses or ulcerations. GASTRIC OUTLET: No delay in emptying. Normal pylorus. DUODENAL BULB: Normal distention. No spasm or ulceration. DUODENUM: Mucosa normal. No extrinsic masses or malrotation. PROXIMAL SMALL BOWEL: Mucosa normal. No extrinsic masses or malrotation. NON-GI TRACT STRUCTURES: No significant finding. OTHER: No other significant finding. 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 Unprovoked gastroesophageal reflux to the mid esophagus COMMENT: Quality ID [id number]: Final reports for procedures using fluoroscopy that document radiation exp osure indices, or exposure time and number of fluorographic images (if radiation exposure indices are not available) TECHNICAL DOCUMENTATION: JOB ID: [id number] [employer]- All Rights Reserved Reading location - IP/workstation name: [email or web address]
== END ==
LOC: RAD 07:53
PROVIDERS: ATTEND Internal Medicine Gastroenterology
DX: K31.1 Adult hypertrophic pyloric stenosis (principal); R13.10 Dysphagia, unspecified; K21.9 Gastro-esophageal reflux disease without esophagitis
CPT/HCPCS: 74247